=== PATIENT | male | born 1970 | race African-American/Black ===

== ENCOUNTER 2025-08-06 07:42 | Outpatient (AMB) | payer OTHER, SELFPAY ==
--- NOTE | 2025-08-06 07:47 | A.OFFPC_ITS ---
Vital Signs 08/06/25 07:49 08/06/25 08:27 Height 6 ft 1 in Weight 247 lb BMI 32.6 BP 136/80 112/78 Blood Pressure Location Lt brachial Lt brachial Position Sitting Pulse 88 Pulse Source Pulse Oximeter Temp 98.1 F Temp Source Temporal Artery Scan Pulse Oximetry (%) 99 Oxygen Delivery Method Room Air Intake Visit Reasons: Routine, reestablish care Compensation And Benefits Advisor Required: No Accompanied by: Self / Same As Patient Allergies No Known Allergies Allergy (Verified 08/06/25 07:53) Medication List - Last Reconciled 08/06/25 by Brenda Farfan MD amlodipine 10 mg PO DAILY Tobacco use date assessed: 08/06/25 Dental Screening Dental Screen Date: 08/06/25 Did you have a dental visit in the last 12 months?: Yes Did you have a dental problem in the last 6 months where you did not have access to dental care?: No HPI HPI Comments History of Present Illness Details The patient is a 55-year-old male [facility] and for management of chronic conditions. Obesity: The patient reports a previous weight of 254-255 lbs, which decreased to 230 lbs while on Zepbound (tirzepatide). His insurance stopped covering Zepbound in March, and he has since been on Wegovy. He states Wegovy only maintains his weight, and he has since regained approximately 13 pounds, with a current weight of 243.2 lbs. He found tirzepatide to be phenomenally effective and did not experience any side effects such as constipation. The patient reports maintaining his activity level with at least three hours of exercise and monitoring his dietary intake. Hypertension: The patient has a history of hypertension managed with amlodipine 10 mg. His blood pressure was previously well-controlled on this medication. 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 - Exercise: Reports at least three hours of exercise weekly. - Diet: Monitors food intake and reports high water consumption, drinking four to five bottles daily. Diagnostic Results: - Blood pressure was 136/80 mmHg initial ly and 112/78 mmHg upon recheck. Review of Systems - General: Reports weight gain of 13 preethi nds over 4-5 months. - Gastrointestinal: Denies constipation. Physical Exam - Vitals: Initial blood pressure was 136 /80 mmHg. Recheck blood pressure was 112/78 mmHg. - Respiratory: Lungs are clear to auscul tation. - Cardiovascular: Normal heart sounds wi th a subtle murmur. - Abdomen: Soft, non-tender, with normal bowel sounds and no distension. Assessment and Plan 1. Obesity - The patient had excellent results with tirzepatide (Zepbound), achieving a 24- pound weight loss. - He has since regained weight on semagl utide (Wegovy). - The plan is to restart tirzepatide for more effective weight management. 2. Hypertension - The patient's blood pressure is well-c ontrolled with a reading of 112/78 mmHg. - He will continue amlodipine 10 mg, and a refill will be sent to the pharmacy. 3. Impaired fasting glucose- check a1c 4. Health Maintenance - Lab work including a hemoglobin A1c, l ipid panel, and kidney and liver fun ction tests will be ordered. - A urine test for protein will also be performed. - The patient's next colonoscopy is due in 2026. - He declined a flu shot. - A follow-up visit is scheduled in four months to serve as a check-in for his weight and for physical Discussion Notes I discussed with the patient the plan to restart tirzepatide (Zepbound) for weight management, as it was significantly more effective for him than his current medication, Wegovy. Patient Instructions - Continue taking your amlodipine 10 mg for blood pressure. - A prescription for Zepbound (tirzepati de) has been sent to your pharmacy. - Please call our office if you do not h ear from the pharmacy about your Zepbound prescription within one week. [facility] Medical History (Updated 08/06/25 @ 08:46 by Brenda Farfan MD) Impaired fasting glucose Obesity Hyperlipidemia, unspecified Primary hypertension Surgical History (Updated 08/05/25 @ 18:02 by Brenda Farfan MD) Hx of inguinal hernia surgery History of appendectomy H/O removal of cyst History of colonoscopy (~07/25/22) Family History (Updated 08/06/25 @ 07:54 by Grazyna Bartlett MA) Mother No problems noted. Father No problems noted. 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 1. Little interest or pleasure in doing things: not at all 2. Feeling down, depressed, or hopeless: not at all 3. Trouble falling or staying asleep, or sleeping too much: not at all 4. Feeling tired or having little energy: not at all 5. Poor appetite or overeating: not at all 6. Feeling bad about yourself - or that you are a failure or have let yourself or your family down: not at all 7. Trouble concentrating on things, such as reading the newspaper or watching television: not at all 8. Moving or speaking so slowly that other people could have noticed. Or the opposite - being so fidgety or restless that you have been moving around a lot more than usual: not at all 9. Thoughts that you would be better off or of hurting yourself in some way: not at all Total score: 0 Source: Developed by Drs. Rancho Recinos, Lidia Mo, Abdirahman Padilla and colleagues, with an educational pacheco from [employer]. Thrive Questionnaire Date Thrive assessed: 08/06/25 I am a: Patient Within the past 12 months, did the food you bought not last and you didn't have the money to get more?: Never true Within the past 12 months, did you worry whether your food would run out before you got money to buy more?: Never true Do you have trouble paying for medicines?: No Do you have trouble getting transportation to medical appointments?: No Do you have trouble paying your heating and electricity bill?: No Do you have trouble taking care of your child, family member or friend?: No Do you have trouble with day-to-day activities such as bathing, preparing meals, shopping, managing finances, etc.?: No Are you currently unemployed and looking for a job?: No Are you interested in more education?: No THRIVE Score: 0 AUDIT C Alcohol Use Questionnaire (AUDIT-C) 1. How often do you have a drink containing alcohol?: Monthly or less 2. How many drinks containing alcohol do you have on a typical day when you are drinking?: 1 or 2 3. How often do you have six or more drinks on one occasion?: Less than monthly Total Score: 2 ALDEN-7 AMB Questionnaire ALDEN-7 Date ALDEN - 7 assessed: 08/06/25 Feeling nervous, anxious, or on edge: 0 = Not at all Not being able to stop or control worryin = Not at all Worrying too much about different things: 0 = Not at all Trouble relaxin = Not at all Being so restless that it is hard to sit still: 0 = Not at all Becoming easily annoyed or irritable: 0 = Not at all Feeling afraid as if something awful might happen: 0 = Not at all Total ALDEN-7 score (0-4 normal; 5-9 mild; 10-14 moderate; 15-21 severe): 0 Source: Developed by Drs. Rancho Recinos, Lidia Mo, Abdirahman Padilla and colleagues, with an educational pacheco from [employer]. Physical exam (Primary Care) Vital Signs: Last Vital Signs Temp 98.1 F 08/06/25 07:49 Pulse 88 08/06/25 07:49 BP 112/78 08/06/25 08:27 Pulse Ox 99 08/06/25 07:49 Oxygen Delivery Method Room Air 08/06/25 07:49 BMI result Body Mass Index 32.6 Tobacco/Smoking Status: Tobacco use Status Tobacco use date assessed 08/06/25 08/06/25 07:56 Patient Tobacco Use Status Never used Tobacco 08/06/25 07:56 e-Cigarette/Vaping Use Never Used 08/06/25 07:56 PHQ-9: PHQ-9 Score PHQ-9: Total score 0 08/06/25 08:43 Thrive Assessment: Date of Thrive Assessment Date Thrive assessed 08/06/25 08/06/25 07:56 Coding Level of Care Code Est Pt Level 4 (21791) Complex EM visit Add On G2211 Diagnoses Primary hypertension I10 Hyperlipidemia, unspecified hyperlipidemia type E78.5 Hyperlipidemia type: unspecified Class 1 obesity with serious comorbidity and body mass index (BMI) of 32.0 to 32.9 in adult, unspecified obesity type E66.9; Z68.32 Body mass index: BMI 32.0-32.9 Obesity classification: adult class 1 (BMI 30 - 34.9) Obesity type: unspecified obesity type Serious obesity comorbidity presence: with serious comorbidity Impaired fasting glucose R73.01 Assessment & Plan Assessment & Plan (1) Primary hypertension: Code(s): I10 - Essential (primary) hypertension Category: Medical (2) Hyperlipidemia, unspecified: Code(s): E78.5 - Hyperlipidemia, unspecified Category: Medical Qualifiers: Hyperlipidemia type: unspecified Qualified Code(s): E78.5 - Hyperlipidemia, unspecified (3) Obesity: Code(s): E66.9 - Obesity, unspecified Category: Medical Qualifiers: Body mass index: BMI 32.0-32.9 Obesity classification: adult class 1 (BMI 30 - 34.9) Obesity type: unspecified obesity type Serious obesity comorbidity presence: with serious comorbidity Qualified Code(s): E66.9 - Obesity, unspecified; Z68.32 - Body mass index [BMI] 32.0-32.9, adult (4) Impaired fasting glucose: Code(s): R73.01 - Impaired fasting glucose Category: Medical Plan Plan - see above - Lab orders were placed for hemoglobin A1c, cholesterol panel, and liver and kidney function tests. - A urine test will be conducted to check for protein. Orders: Orders Lipid Panel Today E66.9 - Obesity, unspecified, E78.5 - Hyperlipidemia, unspecified, I10 - Essential (primary) hypertension, R73.01 - Impaired fasting glucose Complete Blood Count Auto Diff Today E66.9 - Obesity, unspecified, E78.5 - Hyperlipidemia, unspecified, I10 - Essential (primary) hypertension, R73.01 - Impaired fasting glucose Microalbumin, Random (w Creat) Today E66.9 - Obesity, unspecified, E78.5 - Hyperlipidemia, unspecified, I10 - Essential (primary) hypertension, R73.01 - Impaired fasting glucose Hemoglobin A1c Today E66.9 - Obesity, unspecified, E78.5 - Hyperlipidemia, unspecified, I10 - Essential (primary) hypertension, R73.01 - Impaired fasting glucose Comprehensive Met. Panel Today E66.9 - Obesity, unspecified, E78.5 - Hyperlipidemia, unspecified, I10 - Essential (primary) hypertension, R73.01 - Impaired fasting glucose Medications: New amlodipine 10 mg PO DAILY 90 tabs 3RF tirzepatide (weight loss) (Zepbound) 15 mg (0.5 mL) subcut QWEEK 2 mL 12RF
[2025-08-06 07:49] VITALS: BP 136/80; PULSE 88; TEMP 36.7; O2SAT 99; BMI 32.6
[2025-08-06 08:27] VITALS: BP 112/78
== END 2025-08-06 08:29 | disposition home or self-care (01) ==
LOC: HO.HMCHD 07:42
PROVIDERS: PCP Internal Medicine; Visit Provider Internal Medicine
DX: I10 Essential (primary) hypertension (principal); E78.5 Hyperlipidemia, unspecified; E66.9 Obesity, unspecified; Z68.32 Body mass index [BMI] 32.0-32.9, adult; R73.01 Impaired fasting glucose

== ENCOUNTER 2025-08-06 08:32 | Outpatient (REF) | payer OTHER, SELFPAY ==
[2025-08-06 10:59] LABS: MANUAL DIFF FLAG NO
[2025-08-06 11:05] LABS: Hematocrit 45.8 % (42.0-52.0); Hemoglobin 15.4 g/dl (14.0-18.0); Imm Gran Abs Auto 0.02 X10*3/uL (0.00-0.03); Imm Gran Pct Auto 0.5 % (0.0-0.4); Lymphocytes Absolute Auto 1.3 X10*3/uL (1.2-4.9); Mean Corpuscular HGB Conc 33.6 g/dl (31.0-36.0); Mean Corpuscular Hemoglobin 27.5 pg (27.0-33.0); Mean Corpuscular Volume 81.6 fL (80.0-98.0); NRBC Abs Auto 0.000 X10*3/uL (0.0-0.012); NRBC Pct Auto 0.0 /100WBC (0.0-0.2); Platelet Count 196 X10*3/uL (160-400); Red Blood Count 5.61 X10*6/uL (4.60-5.80); White Blood Count 4.2 X10*3/uL (4.8-10.8)
[2025-08-06 11:27] LABS: Alanine Aminotransferase 24 U/L (0-40); Albumin Level 4.5 g/dL (3.5-5.0); Alkaline Phosphatase 39 U/L (39-117); Anion Gap 11 (12-20); Aspartate Amino Transferase 25 U/L (5-37); Blood Urea Nitrogen 23 mg/dL (9-16); Calcium 9.3 mg/dL (8.4-10.2); Carbon Dioxide 26 mmol/L (22-29); Chloride 108 mmol/L (96-108); Cholesterol 219 mg/dL (<200); Estimated Glomerular Filt Rate 51; HDL Cholesterol 73 mg/dL (>40); Potassium 4.3 mmol/L (3.3-5.1); Sodium 141 mmol/L (135-145); Total Protein 7.3 g/dL (6.5-8.0); Triglycerides 81 mg/dL (<150)
[2025-08-06 11:56] LABS: Microalbum/Creatinine Ratio Ur 3.9 ug/mg cr (<30)
== END 2025-08-06 08:33 | disposition home or self-care (01) ==
LOC: HO.10HDL 08:32
PROVIDERS: Visit Provider Internal Medicine
DX: I10 Essential (primary) hypertension (principal); E78.5 Hyperlipidemia, unspecified; E66.9 Obesity, unspecified; R73.01 Impaired fasting glucose
CPT/HCPCS: 36415; 80053; 80061; 82043; 82570; 83036; 85025